=== PATIENT | female | born 1940 | race Caucasian/White ===

== ENCOUNTER → 2020-06-19 | Outpatient (CLI) | payer MEDICARE ==
--- NOTE | 2020-06-19 16:58 | RAD ---
EXAM: Abdomen, 2 views. HISTORY: Constipation. COMPARISON: None. FINDINGS: Frontal upright and supine views of the abdomen are obtained. There is a small amount of gas and stool within the colon. There is no evidence of bowel structure in. There is no free air. There is lumbar scoliosis and multilevel degenerative change involving the lumbar spine. There are few calcified granuloma within the lower lungs. IMPRESSION: Nonobstructive bowel gas pattern. No radiographic evidence of constipation. Electronically signed by: Anahi Gentile MD (06/19/2020 4:55 PM) [id number]
== END ==
LOC: RAD 12:19
PROVIDERS: ATTEND Internal Medicine
DX: K59.00 Constipation, unspecified (principal)
CPT/HCPCS: 74019

== ENCOUNTER → 2021-11-21 | Outpatient (CLI) | payer MEDICARE ==
--- NOTE | 2021-11-22 08:35 | RAD ---
Two-view abdomen and pelvis and 5 view lumbosacral spine HISTORY: Abdominal pain and back pain 2 view abdomen pelvis: Upright and supine AP view and pelvis There is air and stool scattered through the colon. There is a paucity of small bowel gas. There is a pessary device in place. There is no free air. IMPRESSION: Constipation. End of impression 5 view lumbosacral spine: AP lateral bilateral oblique and coned-down lateral views There are 6 lumbar type vertebral bodies. There is moderate degenerative levoconvex scoliosis of the lumbar spine. In the lateral view there is grade 1 anterolisthesis of L5 on L6 and L4 on L5. There is mild loss of stature of the L2 vertebral body. There is significant sclerotic changes. There is loss of intervertebral disc height and marginal spurring at endplates at all levels. IMPRESSION: 1. 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 2. Moderate degenerative levoconvex scoliosis and grade 1 anterolisthesis of L5 on L6 and L4 on L5.\ 3. L2 vertebral body compression fracture with mild loss of stature. This is of uncertain age. Electronically signed by: John Javier III, MD (11/22/2021 8:32 AM) [facility]
== END ==
LOC: RAD 13:38
PROVIDERS: ATTEND Internal Medicine
DX: M47.816 Spondylosis without myelopathy or radiculopathy, lumbar region (principal); M43.16 Spondylolisthesis, lumbar region; M41.86 Other forms of scoliosis, lumbar region; M48.56XA Collapsed vertebra, not elsewhere classified, lumbar region, initial encounter for fracture; M51.26 Other intervertebral disc displacement, lumbar region; M46.06 Spinal enthesopathy, lumbar region; K59.00 Constipation, unspecified; Z96.0 Presence of urogenital implants
CPT/HCPCS: 72110; 74019